=== PATIENT | female | born 1965 | race American Indian/Alaskan Native ===

== ENCOUNTER → 2017-08-25 03:20 | Emergency (ER) | payer SELFPAY | END | disposition left against medical advice (07) | LOC: ED 03:20 | DX: F10.10 Alcohol abuse, uncomplicated (principal); Z53.21 Procedure and treatment not carried out due to patient leaving prior to being seen by health care provider ==

== ENCOUNTER 2017-11-22 00:01 | Emergency (ER) | payer MEDICARE ==
[2017-11-22] MEDS ORDERED: ASPIRIN PO ONE (00:11)
[2017-11-22 00:31] LABS: Basophils % (Auto) 0.4 % (0.0-1.8); Eosinophils # (Auto) 0.4 K/mm3 (0.0-0.4); Eosinophils % (Auto) 4.2 % (0.0-4.3); Hemoglobin 11.9 gm/dl (10.1-14.3); Lymphocytes # (Auto) 3.4 K/mm3 (1.2-5.4); Lymphocytes % (Auto) 33.3 % (13.4-35.0); Mean Corpuscular HGB Conc 32 % (30-34); Mean Corpuscular Hemoglobin 32 pg (28-32); Mean Corpuscular Volume 100 fl (79-97); Monocytes # (Auto) 0.7 K/mm3 (0.0-0.8); Monocytes % (Auto) 6.9 % (0.0-7.3); Platelet Count 323 K/mm3 (140-440); Red Blood Count 3.68 M/mm3 (3.65-5.03)
[2017-11-22] MEDS ORDERED: NACL 0.9% 1000 ML 1,000 ML IV ONE (00:40)
--- NOTE | 2017-11-22 00:41 | Emergency Department Report ---
History of Present Illness - General Chief Complaint: Overdose Stated Complaint: POSS OVERDOSE Time Seen by Provider: 11/22/17 00:33 Source: EMS Mode of arrival: Stretcher Limitations: Altered Mental Status - History of Present Illness Initial Comments: 52-year-old female with a past medical history diabetes, frontal tumor, and post surgical treatment of cerebral aneurysm presents to the hospital status post intentional overdose. Patient posted a go by message on [employer] causing her family to alert EMS. Patient took approximately 35 tablets of trazodone 50 mg at about 10:40 PM an attempt to kill herself. With control was contacted by EMS providers. She is drowsy, opens eyes to pain, localizes pain, grunts and response to painful stimuli. 30 minutes after arrival patient is alert and responsive she states that he tried to overdose because she feels overwhelmed with multiple issues in her life. She also drinking wine all day but denies daily alcohol. She vomited several times prior to arrival. She denies a specific psychiatric diagnoses but she dose see a psychotherapist since receiving her brain aneurysm surgery. She does have a history of previous suicide attempt after brain aneurysm surgery in the past. - Related Data Home Medications Medication Instructions Recorded Confirmed Last Taken Metformin HCl [Fortamet ER] 1,000 mg PO BID 04/27/13 04/27/13 04/27/13 glipiZIDE [glipiZIDE ER] 5 mg PO BID 04/27/13 04/27/13 04/27/13 Previous Rx's Medication Instructions Recorded Last Taken Type Oxybutynin [Ditropan] 5 mg PO DAILY #30 tab 04/28/13 Unknown Rx HYDROcodone/APAP 5-325 [[place] 1 each PO Q6HR PRN #20 tablet 05/05/15 Unknown Rx 5/325] Allergies Allergy/AdvReac Type Severity Reaction Status Date / Time IV Dye Allergy Hives Uncoded 05/05/15 01:58 ED Review of Systems ROS: Stated complaint: POSS OVERDOSE Other details as noted in HPI Comment: Unobtainable due to pts medical conditions ED Past Medical Hx - Past Medical History Previous Medical History?: Yes Hx Diabetes: Yes Additional medical history: frontal tumor - Surgical History Past Surgical History?: Yes Additional Surgical History: cerebral aneurysm with clips - Social History Smoking Status: Never Smoker Substance Use Type: Alcohol - Medications Home Medications: Home Medications Medication Instructions Recorded Confirmed Last Taken Type Metformin HCl [Fortamet ER] 1,000 mg PO BID 04/27/13 04/27/13 04/27/13 History glipiZIDE [glipiZIDE ER] 5 mg PO BID 04/27/13 04/27/13 04/27/13 History Oxybutynin [Ditropan] 5 mg PO DAILY #30 tab 04/28/13 Unknown Rx HYDROcodone/APAP 5-325 [[place] 1 each PO Q6HR PRN #20 tablet 05/05/15 Unknown Rx 5/325] ED Physical Exam - General Limitations: Altered Mental Status - Other Other exam information: General: No limitations, patient is alert in no acute distress Head exam: Atraumatic, normocephalic Eyes exam: Normal appearance, pupils equal reactive to light, extraocular movements intact ENT: Moist mucous membrane, normal oropharynx Neck exam: Normal inspection, full range of motion, no meningismus nontender Respiratory exam: Clear to auscultation bilateral, no wheezes, rales, crackles Cardiovascular: Normal rate and rhythm, normal heart sounds Abdomen: Soft, nondistended, and nontender, with normal bowel sounds, no rebound, or guarding Extremity: Full range of motion normal inspection no deformity Back: Normal Inspection, full range of motion, no tenderness Neurologic: Alert, oriented x3, cranial nerves intact, no motor or sensory deficit Psychiatric: normal affect, normal mood Skin: Warm, dry, intact ED Course Vital Signs 11/22/17 11/22/17 11/22/17 00:06 00:15 00:30 Temperature 97.8 F Pulse Rate 80 75 79 Respiratory 12 19 17 Rate Blood Pressure 85/58 101/55 112/54 Blood Pressure 85/58 [Left] O2 Sat by Pulse 99 100 100 Oximetry 11/22/17 11/22/17 11/22/17 00:46 01:00 01:10 Temperature Pulse Rate 82 79 Respiratory 17 10 L 18 Rate Blood Pressure 112/54 116/59 Blood Pressure [Left] O2 Sat by Pulse 100 98 99 Oximetry 11/22/17 11/22/17 11/22/17 01:16 01:30 01:46 Temperature Pulse Rate 79 85 85 Respiratory 13 29 H 13 Rate Blood Pressure 112/54 113/53 116/59 Blood Pressure [Left] O2 Sat by Pulse 100 98 99 Oximetry 11/22/17 11/22/1718 02:00 02:16 02:30 Temperature Pulse Rate 91 H 81 94 H Respiratory 13 16 19 Rate Blood Pressure 113/53 105/46 111/53 Blood Pressure [Left] O2 Sat by Pulse 100 99 99 Oximetry 11/22/17 11/22/17 11/22/17 02:46 03:00 03:16 Temperature Pulse Rate 82 84 87 Respiratory 19 16 17 Rate Blood Pressure 111/53 118/52 111/53 Blood Pressure [Left] O2 Sat by Pulse 99 99 99 Oximetry 11/22/17 03:30 Temperature Pulse Rate 84 Respiratory 14 Rate Blood Pressure 118/62 Blood Pressure [Left] O2 Sat by Pulse 100 Oximetry - Reevaluation(s) Reevaluation #1: 11/22/17 03:38 pt remains arousable vitals remain stable - Consultations Consultation #1: 11/22/17 03:45 Case discussed with poison control They received a call that patient had an ingestion at 10:40 PM. States that trazodone usually peaks between 30 minutes to 2 hours. Pulse, symptoms of bradycardia and hypotension. Also may have seizures, QT prolongation, T and ST/ T-wave changes, PVC, ABRAHAM, AV block, torsades, inmate potentiate the effects of other serotonin medication. Recommended optimization of electrolytes Potassium 4, calcium 9, mag 2 Recommend repeat EKG to ensure QRS and QTc not more prolonged Recommend repeat aspirin level at 4 AM. Level greater than 100 will be considered toxic Recommended 6-8 hours observation time if patient remains stable and alert she may be medically cleared. ED Medical Decision Making - Lab Data Result diagrams: 11/22/17 00:21 11/22/17 00:21 Lab Results 11/22/17 11/22/17 11/22/17 Range/Units 00:18 00:18 00:21 WBC 10.1 (4.5-11.0) K/mm3 RBC 3.68 (3.65-5.03) M/mm3 Hgb 11.9 (10.1-14.3) gm/dl Hct 37.0 (30.3-42.9) % MCV 100 H (79-97) fl MCH 32 (28-32) pg MCHC 32 (30-34) % RDW 14.0 (13.2-15.2) % Plt Count 323 (140-440) K/mm3 Lymph % (Auto) 33.3 (13.4-35.0) % [place] % (Auto) 6.9 (0.0-7.3) % Eos % (Auto) 4.2 (0.0-4.3) % Baso % (Auto) 0.4 (0.0-1.8) % Lymph # 3.4 (1.2-5.4) K/mm3 [place] # 0.7 (0.0-0.8) K/mm3 Eos # 0.4 (0.0-0.4) K/mm3 Baso # 0.0 (0.0-0.1) K/mm3 Seg Neutrophils % 55.2 (40.0-70.0) % Seg Neutrophils # 5.6 (1.8-7.7) K/mm3 Sodium (137-145) mmol/L Potassium (3.6-5.0) mmol/L Chloride (98-107) mmol/L Carbon Dioxide (22-30) mmol/L Anion Gap mmol/L BUN (7-17) mg/dL Creatinine (0.7-1.2) mg/dL Estimated GFR ml/min BUN/Creatinine Ratio % Glucose (65-100) mg/dL Calcium (8.4-10.2) mg/dL Magnesium (1.7-2.3) mg/dL Total Bilirubin (0.1-1.2) mg/dL Direct Bilirubin (0-0.2) mg/dL Indirect Bilirubin mg/dL AST (5-40) units/L ALT (7-56) units/L Alkaline Phosphatase (35-129) units/L Troponin T (0.00-0.029) ng/mL Total Protein (6.3-8.2) g/dL Albumin (3.9-5) g/dL Albumin/Globulin Ratio % HCG, Qual (Negative) Urine Color Colorless (Yellow) Urine Turbidity Clear (Clear) Urine pH 6.0 (5.0-7.0) Ur Specific [place] 1.003 (1.003-1.030) Urine Protein <15 mg/dl (Negative) mg/dL Urine Glucose (UA) 150 (Negative) mg/dL Urine Ketones Neg (Negative) mg/dL Urine Blood Sm (Negative) Urine Nitrite Neg (Negative) Urine Bilirubin Neg (Negative) Urine Urobilinogen < 2.0 (<2.0) mg/dL Ur Leukocyte Esterase Neg (Negative) Urine WBC (Auto) < 1.0 (0.0-6.0) /HPF Urine RBC (Auto) 2.0 (0.0-6.0) /HPF U Epithel Cells (Auto) < 1.0 (0-13.0) /HPF Salicylates (2.8-20.0) mg/dL Urine Opiates Screen Presumptive negative Urine Methadone Screen Presumptive negative Acetaminophen (10.0-30.0) ug/mL Ur Barbiturates Screen Presumptive positive Ur Phencyclidine Scrn Presumptive negative Ur Amphetamines Screen Presumptive negative U Benzodiazepines Scrn Presumptive negative Urine Cocaine Screen Presumptive negative U Marijuana (THC) Screen Presumptive negative Drugs of Abuse Note Disclamer Plasma/Serum Alcohol (0-0.07) % 11/22/17 11/22/17 11/22/17 Range/Units 00:21 00:21 00:49 WBC (4.5-11.0) K/mm3 RBC (3.65-5.03) M/mm3 Hgb (10.1-14.3) gm/dl Hct (30.3-42.9) % MCV (79-97) fl MCH (28-32) pg MCHC (30-34) % RDW (13.2-15.2) % Plt Count (140-440) K/mm3 Lymph % (Auto) (13.4-35.0) % [place] % (Auto) (0.0-7.3) % Eos % (Auto) (0.0-4.3) % Baso % (Auto) (0.0-1.8) % Lymph # (1.2-5.4) K/mm3 [place] # (0.0-0.8) K/mm3 Eos # (0.0-0.4) K/mm3 Baso # (0.0-0.1) K/mm3 Seg Neutrophils % (40.0-70.0) % Seg Neutrophils # (1.8-7.7) K/mm3 Sodium 141 (137-145) mmol/L Potassium 3.6 (3.6-5.0) mmol/L Chloride 107.7 H (98-107) mmol/L Carbon Dioxide 19 L (22-30) mmol/L Anion Gap 18 mmol/L BUN 5 L (7-17) mg/dL Creatinine 0.4 L (0.7-1.2) mg/dL Estimated GFR > 60 ml/min BUN/Creatinine Ratio 13 % Glucose 221 H (65-100) mg/dL Calcium 8.5 (8.4-10.2) mg/dL Magnesium (1.7-2.3) mg/dL Total Bilirubin (0.1-1.2) mg/dL Direct Bilirubin (0-0.2) mg/dL Indirect Bilirubin mg/dL AST (5-40) units/L ALT (7-56) units/L Alkaline Phosphatase (35-129) units/L Troponin T < 0.010 (0.00-0.029) ng/mL Total Protein (6.3-8.2) g/dL Albumin (3.9-5) g/dL Albumin/Globulin Ratio % HCG, Qual Negative (Negative) Urine Color (Yellow) Urine Turbidity (Clear) Urine pH (5.0-7.0) Ur Specific [place] (1.003-1.030) Urine Protein (Negative) mg/dL Urine Glucose (UA) (Negative) mg/dL Urine Ketones (Negative) mg/dL Urine Blood (Negative) Urine Nitrite (Negative) Urine Bilirubin (Negative) Urine Urobilinogen (<2.0) mg/dL Ur Leukocyte Esterase (Negative) Urine WBC (Auto) (0.0-6.0) /HPF Urine RBC (Auto) (0.0-6.0) /HPF U Epithel Cells (Auto) (0-13.0) /HPF Salicylates < 0.3 L (2.8-20.0) mg/dL Urine Opiates Screen Urine Methadone Screen Acetaminophen (10.0-30.0) ug/mL Ur Barbiturates Screen Ur Phencyclidine Scrn Ur Amphetamines Screen U Benzodiazepines Scrn Urine Cocaine Screen U Marijuana (THC) Screen Drugs of Abuse Note Plasma/Serum Alcohol (0-0.07) % 11/22/17 11/22/17 11/22/17 Range/Units 00:49 00:49 00:49 WBC (4.5-11.0) K/mm3 RBC (3.65-5.03) M/mm3 Hgb (10.1-14.3) gm/dl Hct (30.3-42.9) % MCV (79-97) fl MCH (28-32) pg MCHC (30-34) % RDW (13.2-15.2) % Plt Count (140-440) K/mm3 Lymph % (Auto) (13.4-35.0) % [place] % (Auto) (0.0-7.3) % Eos % (Auto) (0.0-4.3) % Baso % (Auto) (0.0-1.8) % Lymph # (1.2-5.4) K/mm3 [place] # (0.0-0.8) K/mm3 Eos # (0.0-0.4) K/mm3 Baso # (0.0-0.1) K/mm3 Seg Neutrophils % (40.0-70.0) % Seg Neutrophils # (1.8-7.7) K/mm3 Sodium (137-145) mmol/L Potassium (3.6-5.0) mmol/L Chloride (98-107) mmol/L Carbon Dioxide (22-30) mmol/L Anion Gap mmol/L BUN (7-17) mg/dL Creatinine (0.7-1.2) mg/dL Estimated GFR ml/min BUN/Creatinine Ratio % Glucose (65-100) mg/dL Calcium (8.4-10.2) mg/dL Magnesium 2.00 (1.7-2.3) mg/dL Total Bilirubin < 0.20 (0.1-1.2) mg/dL Direct Bilirubin < 0.2 (0-0.2) mg/dL Indirect Bilirubin 0.0 mg/dL AST 20 (5-40) units/L ALT 12 (7-56) units/L Alkaline Phosphatase 77 (35-129) units/L Troponin T (0.00-0.029) ng/mL Total Protein 6.5 (6.3-8.2) g/dL Albumin 3.6 L (3.9-5) g/dL Albumin/Globulin Ratio 1.2 % HCG, Qual (Negative) Urine Color (Yellow) Urine Turbidity (Clear) Urine pH (5.0-7.0) Ur Specific [place] (1.003-1.030) Urine Protein (Negative) mg/dL Urine Glucose (UA) (Negative) mg/dL Urine Ketones (Negative) mg/dL Urine Blood (Negative) Urine Nitrite (Negative) Urine Bilirubin (Negative) Urine Urobilinogen (<2.0) mg/dL Ur Leukocyte Esterase (Negative) Urine WBC (Auto) (0.0-6.0) /HPF Urine RBC (Auto) (0.0-6.0) /HPF U Epithel Cells (Auto) (0-13.0) /HPF Salicylates (2.8-20.0) mg/dL Urine Opiates Screen Urine Methadone Screen Acetaminophen 6.3 L (10.0-30.0) ug/mL Ur Barbiturates Screen Ur Phencyclidine Scrn Ur Amphetamines Screen U Benzodiazepines Scrn Urine Cocaine Screen U Marijuana (THC) Screen Drugs of Abuse Note Plasma/Serum Alcohol 0.10 H (0-0.07) % - EKG Data -: EKG Interpreted by Me EKG shows normal: sinus rhythm, axis (qrs 22), QRS complexes (qrsd 91), ST-T waves (no stemi/ inv) Rate: normal (80) - Medical Decision Making To correct electrolytes 40 mg by mouth potassium given. 1 g of calcium provided. Repeat EKG S shows improvement and QTc and stable QRS complex compared to previous. She remains alert and awake during the entire ED stay with stable vital signs. Patient is medically cleared for psychiatric admission. Mental health evaluation requested 1013 and transfer forms signed - Differential Diagnosis depression, suicidal, psychosis, overdose Critical Care Time: No Critical care attestation.: If time is entered above; I have spent that time in minutes in the direct care of this critically ill patient, excluding procedure time. ED Disposition Clinical Impression: Suicide by drug overdose, Alcohol intoxication, Medical clearance for psychiatric admission Disposition: [id number]/TX-65 PSY HOSP/PSY UNIT Is pt being admited?: No Condition: Stable Time of Disposition: 06:22 (awaiting acceptance)
[2017-11-22 00:48] LABS: BUN/Creatinine Ratio 13; Blood Urea Nitrogen 5 mg/dL (7-17); Calcium 8.5 mg/dL (8.4-10.2); Hemolysis Index 15
[2017-11-22 01:07] LABS: Bilirubin,Urine NEG (Negative); Blood,Urine SM (Negative); Color,Urine Colorless (Yellow); Protein,Urine <15 mg/dL mg/dL (Negative); Urobilinogen,Urine < 2.0 mg/dL (<2.0); WBC,Urine < 1.0 /HPF (0.0-6.0)
[2017-11-22 01:33] LABS: Amphetamine Screen,Urine PRESUMPTIVE NEGATIVE; Benzodiazepines Screen,Urine PRESUMPTIVE NEGATIVE; Cannabinoid Screen,Urine PRESUMPTIVE NEGATIVE; Cocaine Screen,Urine PRESUMPTIVE NEGATIVE; Methadone Screen,Urine PRESUMPTIVE NEGATIVE; Opiate Screen,Urine PRESUMPTIVE NEGATIVE
[2017-11-22 02:28] LABS: Alanine Aminotransferase 12 units/L (7-56); Albumin 3.6 g/dL (3.9-5)
[2017-11-22 02:30] LABS: Bilirubin,Direct < 0.2 mg/dL (0-0.2)
[2017-11-22] MEDS ORDERED: K-DUR PO ONE (03:44)
[2017-11-22] MEDS ORDERED: CALCIUM GLUCONATE 1,000 MG in NACL 0.9% 100 ML IV ONE (03:46)
--- NOTE | 2017-11-22 10:47 | Consultation ---
History of Present Illness - Reason for Consult Consult date: 11/22/17 Reason for consult: Mental Health Evaluation Requesting physician: PASCUAL ODONNELL - Chief Complaint Chief complaint: "I was overwhelmed" - History of Present Psychiatric Illness 52-year-old AA female presenting to ER for intentional overdose of 35 Trazodone pills. Today the patient is calm and cooperative during the assessment. She stated that she became overwhelmed yesterday when she was informed by her her PCP that her insulin medication will need to be increased. She stated that she was already dealing with family issues prior to that notification. She stated that she didn't want to live anymore, so she decided to take the Trazodone pills to kill herself. She stated that her life at the time of the overdose was "worthless." She stated this was her only attempt at suicide. She denies any previous attempts. She stated that her medical issues has gotten the best of her and now feel hopeless and helpless. She denies SI/HI's and AVH's. She stated that she cannot stay asleep. She denies a poor appetite, manic episodes in the past, and recreational drug use. She stated that she drink wine when she took the pills. She stated that she does not consume alcohol (etoh) frequently. Medications and Allergies Allergies Allergy/AdvReac Type Severity Reaction Status Date / Time IV Dye Allergy Hives Uncoded 05/05/15 01:58 Home Medications Medication Instructions Recorded Confirmed Last Taken Type Metformin HCl [Fortamet ER] 1,000 mg PO BID 04/27/13 04/27/13 04/27/13 History glipiZIDE [glipiZIDE ER] 5 mg PO BID 04/27/13 04/27/13 04/27/13 History Oxybutynin [Ditropan] 5 mg PO DAILY #30 tab 04/28/13 Unknown Rx HYDROcodone/APAP 5-325 [[place] 1 each PO Q6HR PRN #20 tablet 05/05/15 Unknown Rx 5/325] Past psychiatric history - Past Medical History Past Medical History: diabetes, other (Frontal Tumor) Past Surgical History: Other (Cerebral Aneurysm with clips) - past Psychiatric treatment and history psychiatric treatment history: Hx of depression. A previous inpatient psy admission. She denies a fam psy hx. - Social History Social history: lives with family Mental Status Exam - Vital signs Last Vital Signs Temp 97.8 F 11/22/17 00:06 Pulse 85 11/22/17 09:45 Resp 20 11/22/17 09:45 BP 122/61 11/22/17 09:45 Pulse Ox 98 11/22/17 09:45 - Exam Narrative exam: MSE: Appearance: calm, cooperative Behavior: regular eye contact Speech: regular rate and tone Mood: "okay" Affect: congruent to mood Thought Process: circumstantial Thought Content: denies SI/HI's and AVH's Motor Activity: sitting up in the bed Cognition: A/O x3 Insight: fair Judgment: variable Results Result Diagrams: 11/22/17 00:21 11/22/17 00:21 Abnormal lab results 11/22/17 11/22/17 11/22/17 Range/Units 00:21 00:21 00:49 MCV 100 H (79-97) fl Chloride 107.7 H (98-107) mmol/L Carbon Dioxide 19 L (22-30) mmol/L BUN 5 L (7-17) mg/dL Creatinine 0.4 L (0.7-1.2) mg/dL Glucose 221 H (65-100) mg/dL Albumin (3.9-5) g/dL Salicylates < 0.3 L (2.8-20.0) mg/dL Acetaminophen (10.0-30.0) ug/mL Plasma/Serum Alcohol (0-0.07) % 11/22/17 11/22/17 11/22/17 Range/Units 00:49 00:49 00:49 MCV (79-97) fl Chloride (98-107) mmol/L Carbon Dioxide (22-30) mmol/L BUN (7-17) mg/dL Creatinine (0.7-1.2) mg/dL Glucose (65-100) mg/dL Albumin 3.6 L (3.9-5) g/dL Salicylates (2.8-20.0) mg/dL Acetaminophen 6.3 L (10.0-30.0) ug/mL Plasma/Serum Alcohol 0.10 H (0-0.07) % All other labs normal. Assessment and Plan Assessment and plan: Impression: MDD, Severe Type. Insomnia. R/O Alcohol Use DO. Alcohol Intoxication. Intentional overdose. Today the patient is calm and cooperative during the assessment. DDx: R/O Bipolar DO Recommendation/Plan: Continue 1013. Dispo: The patient will be transferred to [facility] today for inpatient psy services. Staffed with Dr David Campos.
[2017-11-22] MEDS ORDERED: TYLENOL PO ONE (10:49)
[2017-11-22 13:13] VITALS: BP 123/64
== END 2017-11-22 13:14 ==
LOC: ED 00:01
DX: T43.212A Poisoning by selective serotonin and norepinephrine reuptake inhibitors, intentional self-harm, initial encounter (principal); E11.9 Type 2 diabetes mellitus without complications; F32.9 Major depressive disorder, single episode, unspecified; R11.10 Vomiting, unspecified; G47.00 Insomnia, unspecified; F10.129 Alcohol abuse with intoxication, unspecified; Z91.041 Radiographic dye allergy status; Z79.84 Long term (current) use of oral hypoglycemic drugs; Y92.89 Other specified places as the place of occurrence of the external cause
CPT/HCPCS: 36415; 80048; 80074; 80307; 81001; 82962; 83735; 84484; 84703; 85025; 93005; 93010; 96361; 96365; 99285; G0480; J0610; J7030; 80320